=== PATIENT | female | born 1970 | race Caucasian/White ===

== ENCOUNTER 2019-06-01 15:34 | Emergency (ER) | payer OTHER ==
[~2019-06-01] VITALS: Ht 160 cm; Wt 63.5 kg
[2019-06-01 15:42] VITALS: BP 131/90; Ht 160 cm; Wt 63.5 kg
== END 2019-06-01 15:48 | disposition other institution (70) ==
LOC: ED 15:34
DX: Z02.89 Encounter for other administrative examinations (principal)